=== PATIENT | male | born 1995 | race African-American/Black ===

== ENCOUNTER 2020-07-28 22:52 | Emergency (ER) | payer OTHER ==
[~2020-07-28] VITALS: Ht 188 cm; Wt 62.6 kg
[2020-07-28 23:10] VITALS: BP 123/63
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
[2020-07-29] MEDS ORDERED: TRAM-48 PO (00:12)
--- NOTE | 2020-07-29 00:20 | RAD ---
EXAMINATION: FOREARM LEFT, WRIST 3V LEFT CLINICAL HISTORY: Left forearm/wrist pain TECHNIQUE: FOREARM LEFT, WRIST 3V LEFT Number of Images/Views: 2 forearm, 3 wrist COMPARISON: None FINDINGS: Nondisplaced oblique fracture through the base of the ulnar styloid with mild overlying soft tissue edema. No additional acute fracture visualized. Joint spaces and alignment maintained. Limited evaluation of the elbow unremarkable. IMPRESSION: Nondisplaced left ulnar styloid fracture. Electronically signed by: Dayron Carreon DO (07/29/2020 12:17 AM) BRUCE
[2020-07-29] MEDS ORDERED: traMADol 50 MG TABLET PO ONE (00:30)
== END 2020-07-29 00:20 | disposition home or self-care (01) ==
LOC: ER 22:52
DX: S00.83XA Contusion of other part of head, initial encounter (principal); S60.212A Contusion of left wrist, initial encounter; M54.5 Low back pain; R20.2 Paresthesia of skin; V98.8XXA Other specified transport accidents, initial encounter; Y93.89 Activity, other specified; Y92.413 State road as the place of occurrence of the external cause; Y99.8 Other external cause status
CPT/HCPCS: 73090; 73110; 99284

== ENCOUNTER 2020-08-22 18:31 | Emergency (ER) | payer OTHER ==
[~2020-08-22] VITALS: Ht 182.9 cm; Wt 150.0 kg
[~2020-08-22 18:31] MED LIST: TRAM-48 PO
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
[2020-08-22 19:31] VITALS: BP 109/63
== END 2020-08-22 19:31 | disposition home or self-care (01) ==
LOC: ER 18:31
DX: M54.2 Cervicalgia (principal); M62.838 Other muscle spasm
CPT/HCPCS: 99281

== ENCOUNTER 2021-09-08 20:07 | Emergency (ER) | payer SELFPAY | END 2021-09-08 21:00 | disposition left against medical advice (07) | LOC: ER 20:07 | DX: Z53.21 Procedure and treatment not carried out due to patient leaving prior to being seen by health care provider (principal) ==